=== PATIENT | female | born 2000 | race Hispanic/Latino ===

== ENCOUNTER 2021-11-13 15:09 | Emergency (ER) | payer OTHER, BC ==
[~2021-11-13] VITALS: Ht 160 cm; Wt 64.0 kg
[~2021-11-13 15:09] MED LIST: CEFDINIR300 MG PO; CLINDAMYCIN HC150 MG PO; HYDROCODON-ACE1 EA10 PO; PROTONIX40 MG PO
[2021-11-13] MEDS ORDERED: HYDROCODON-ACE1 EA11 PO (18:59)
[2021-11-13] MEDS ORDERED: ONDANSETRON ODT8 MG PO (18:59)
--- NOTE | 2021-11-13 19:25 | NUR ---
EMILY MAXWELL INFORMED ME THAT PT HAD MISCARRIED AND WAS INTERESTED IN VISITING WITH ME REGARDING [facility] DEMISE BURIAL. I ARRIVED IN PT'S , HER MOTHER IN , DID NOT SPEAK [place] CITIZ[place] BUT PT WAS FLUENT. PT WOULD RELAY TO MOTHER SHE FELT NEEDED. INFORMED HER OF OUR BURIAL AT [facility], EX- PLAINED CONNECTION WITH [facility] AND [facility]. SHE ALSO ASKED IF BURIAL COULD BE DONE IN [place]. YES, BUT SHE WOULD NEED TO MAKE THOSE ARRANGEMENTS AND BARE FINANCIAL RESPONSIBILITIES. INFORMED HER HOW TO MAKE ARRANGEMENTS WITH ME IF SHE WOULD LIKE TO USE [facility]. GAVE CONDOLENCES, COMFORT AND HAD PRAYER WITH BOTH. PT IS VERY GRACIOUS, WILL FOLLOW NEEDED
== END 2021-11-13 19:21 | disposition home or self-care (01) ==
LOC: ED 15:09
DX: O03.9 Complete or unspecified spontaneous abortion without complication (principal)
CPT/HCPCS: 36415; 76801; 76817; 80048; 84702; 85025; 86900; 96374; 99284-25; J1170; J7030

== ENCOUNTER 2023-03-26 06:07 | Inpatient (IN) | payer OTHER, BC ==
[~2023-03-26] VITALS: Ht 157.5 cm; Wt 77.1 kg
--- OUTSIDE RECORDS SUMMARY | ~2023-03-26 | XMS | Continuity of Care Document ---
Demographics + + + | Address | [address] | | | [place] [address] | + + + | Preferred Language | Unknown | + + + | Marital Status | Never | + + + | Episcopalian Affiliation | Unknown | + + + | Race | Unknown | + + + | Ethnic Group | Unknown | + + + Author + + + | Author | [facility] | + + + | Organization | [facility] | + + + | Address | [address] | | | [place] [address] | + + + | Phone | | + + + Care Team Providers + + + + | Care Perch Mender Name | Role | Phone | + + + + Unavailable | Unavailable | + + + + Allergies and Intolerances + + + + + + | date | description | facility | reaction | severity | + + + + + + | (no date) | No Known | [facility] | (no reaction) | (no severity) | | | Allergies | | | | + + + + + + Encounters No information. Functional Status No information. Immunizations No information. Medications No information. Problems + + + + | date | description | facility | + + + + | 2022-08-21 13:47 | [facility] | [facility] | | | NORMAL FIRST PREG, FIRST | | | | TRIMESTER | | + + + + | 2022-08-21 13:47 | LESS THAN 8 WEEKS | [facility] | | | GESTATION OF | | + + + + | 2022-08-21 13:47 | 8 WEEKS GESTATION OF | [facility] | | | | | + + + + | 2022-11-06 12:59 | [facility] | [facility] | | | NORMAL FIRST PREG, SECOND | | | | TRIMESTER | | + + + + | 2022-11-06 12:59 | 20 WEEKS GESTATION OF | [facility] | | | | | + + + + | 2023-01-24 19:11 | [facility] | [facility] | | | NORMAL PREG, UNSP, THIRD | | | | TRIMESTER | | + + + + | 2023-01-24 19:11 | 31 WEEKS GESTATION OF | [facility] | | | | | + + + + Procedures No information. Results/Labs No information. Social History No information. Vital Signs No information."
[~2023-03-26 06:07] MED LIST changes: +HYDROCODON-ACE1 EA11 PO; +ONDANSETRON ODT8 MG PO
[2023-03-26 08:12] LABS: AMPHETAMINES, UR NEGATIVE (NEGATIVE); BARBITURATES, UR NEGATIVE (NEGATIVE); BENZODIAZEPINES, UR NEGATIVE (NEGATIVE); BUPRENORPHINE,UR NEGATIVE (NEGATIVE); COCAINE, UR NEGATIVE (NEGATIVE); MARIJUANA (THC), UR NEGATIVE (NEGATIVE); MDMA, UR NEGATIVE (NEGATIVE); METHADONE, UR NEGATIVE (NEGATIVE); METHAMPHETAMINE, UR NEGATIVE (NEGATIVE); OPIATES, UR NEGATIVE (NEGATIVE); OXYCODONE, UR NEGATIVE (NEGATIVE); PHENCYCLIDINE, UR NEGATIVE (NEGATIVE); TRICYCLIC ANTIDEPRESSANT, UR NEGATIVE (NEGATIVE)
[2023-03-26 08:18] LABS: HEMATOCRIT 36.7 % (35.0-50.0); HEMOGLOBIN 11.6 g/dL (12.0-18.0); MCH 25.4 (27-36); MCHC 31.7 g/dl (30-36); MCV 80.1 fl (81-99); RBC 4.59 M/ul (4.3-5.7); RDW 16.1 (10.5-15.0)
[2023-03-26 08:33] VITALS: BP 129/77
[2023-03-26 08:53] LABS: ABO B; ANTIBODY SCREEN NEGATIVE; RH POSITIVE
--- NOTE | 2023-03-26 11:29 | PR ---
[facility] [address] [place], [place] [address] Signed Progress Notes IP Datetime Report Generated by CPN: 03/26/2023 11:29 PROGRESS NOTES: [id number] Impression: Normal Progression of Labor; Reassuring Heart Rate Procedures: Sterile Vag Exam Plan: Continue Present Management; Anticipate Vaginal Delivery Informed Consent Obtain: Vaginal Delivery VITAL SIGNS: [id number] Vital Signs: Reviewed; Within Normal Limits EXAM: [id number] Dilatation: 8.0 Effacement: 95 Station: -1 Contractions: q 3-4 MEMBRANES: [id number] Comments: Pt seen and examined. Doing well. Painful contractions but coping well w/ nitrous. Declines epidural or AROM. Will bounce on birthing ball. No quesions or concerns. Reviewed Cat 1 strip and favorable labor progression. Anticipate soon FETUS A: [id number] FHR Baseline: 125 Variability: Moderate 6-25bpm Decelerations: None FHR Category: Category I Presentation: Vertex Comments on Fetus A: No evidence of metabolic acidosis FETUS B: [id number] Signing Physician: Lonnie Green DO Copies: ~ *Electronically Signed* 03/26/23 1122 LONNIE GREEN ([place]) DO PATIENT NAME: KARTHIK LOVELL PROGRESS NOTE DATE OF : 99 PHYSICIAN: LONNIE GREEN) DO RPT #: [id number] REPORT IS CONFIDENTIAL AND NOT TO BE RELEASED WITHOUT AUTHORIZATION
[2023-03-27 05:41] LABS: HEMOGLOBIN 10.8 g/dL (12.0-18.0); MCH 25.7 (27-36); MCHC 31.8 g/dl (30-36); RBC 4.2 M/ul (4.3-5.7); RDW 16.1 (10.5-15.0)
--- NOTE | 2023-03-27 18:39 | PR ---
[facility] [address] [place], [place] [address] Signed PP Progress Notes Datetime Report Generated by CPN: 03/27/2023 18:39 SUBJECTIVE: [id number] Pain: Within Normal Limits Nausea/Vomiting: Denies Flatus: Yes Bowel Movement: No Vital Signs: [id number] Vital Signs: Reviewed; Within Normal Limits Cardiovascular: Normal Respiratory: Normal Abdomen/Uterus: Normal Lochia: Normal Vulva/Perineum: Not Done Breasts: Not Done CVA Tenderness: Normal Extremities: Normal Incision: Not Applicable Progress: Normal Exam Comments: Fundus firm U-2 nontender IMPRESSION/PLAN/PROCEDURES: [id number] Impression: Normal Progression; Pain Progress Notes: Pt seen and examined. C/O extremely tender coccyx and is concerned of possible fracture. No fevers/chills or other concerns. well. XR ordered. Anticipate d/c home in AM Signing Physician: Lonnie Green DO Copies: ~ *Electronically Signed* 03/27/23 1837 LONNIE GREEN ([place]) DO PATIENT NAME: KARTHIK LOVELL PROGRESS NOTE DATE OF : 99 PHYSICIAN: LONNIE GREEN (EMCCA) DO RPT #: [id number] REPORT IS CONFIDENTIAL AND NOT TO BE RELEASED WITHOUT AUTHORIZATION
--- NOTE | 2023-03-28 08:33 | PR ---
[facility] [address] [facility] [place], [place] [address] Signed PP Progress Notes Datetime Report Generated by CPN: 03/28/2023 08:33 SUBJECTIVE: [id number] Pain: Within Normal Limits Pain Comments: Tailbone pain improved, XR negative Nausea/Vomiting: Denies Flatus: Yes Bowel Movement: Yes Vital Signs: [id number] Vital Signs: Reviewed; Within Normal Limits Cardiovascular: Normal Respiratory: Normal Abdomen/Uterus: Normal Lochia: Normal Vulva/Perineum: Not Done Breasts: Not Done CVA Tenderness: Normal Extremities: Normal Incision: Not Applicable Progress: Normal Exam Comments: Fundus firm U-2 nontender IMPRESSION/PLAN/PROCEDURES: [id number] Impression: Normal Progression Plan: Discharge Progress Notes: Pt seen and examined. Doing well. Coccyx pain improved and XR negative. Ambulating, voiding, and tolerating full diet. Pain and lochia minimal. well. No fevers/chills or other concerns. Desires d/c home. Reviewed d/c instructions in detail. Uncertain of pp contraception plan. No other questions. F/U 2 wk pp Signing Physician: Lonnie Green DO Copies: ~ *Electronically Signed* 03/28/23 0833 LONNIE GREEN ([place]) DO PATIENT NAME: KARTHIK LOVELL PROGRESS NOTE DATE OF : 99 PHYSICIAN: LONNIE GREEN) DO RPT #: [id number] REPORT IS CONFIDENTIAL AND NOT TO BE RELEASED WITHOUT AUTHORIZATION
--- NOTE | 2023-03-28 11:58 | NUR ---
PT IN BED WITH BABY. BABY APPEARED CONTENT. DAD AT BEDSIDE. GRANDMOTHER IN CHAIR. ALL EXHIBITED LOVING INTERACTION WITH BABY. DENIED NEEDS. CONSENTED TO PRAYER. PRAYED FOR ONGOING HEALING AND ABIDING PEACE.
== END 2023-03-28 13:15 | disposition home or self-care (01) | DRG 807 ==
LOC: FBCO 06:07 → FBC 07:40
PROVIDERS: Obstetrics & Gynecology; ADMIT Obstetrics & Gynecology; ATTEND Obstetrics & Gynecology
PROC: 10E0XZZ Delivery of Products of Conception, External Approach (ICD-10-PCS; principal; 2023-03-26)
PROC: 0KQM0ZZ Repair Perineum Muscle, Open Approach (ICD-10-PCS; 2023-03-26)
PROC: 10907ZC Drainage of Amniotic Fluid, Therapeutic from Products of Conception, Via Natural or Artificial Opening (ICD-10-PCS; 2023-03-26)
PROC: 0UQMXZZ Repair Vulva, External Approach (ICD-10-PCS; 2023-03-26)
DX: O76 Abnormality in fetal heart rate and rhythm complicating labor and delivery (principal); Z37.0 Single live birth; O99.892 Other specified diseases and conditions complicating childbirth; M53.3 Sacrococcygeal disorders, not elsewhere classified; O99.52 Diseases of the respiratory system complicating childbirth; J45.909 Unspecified asthma, uncomplicated; O34.13 Maternal care for benign tumor of corpus uteri, third trimester; O70.0 First degree perineal laceration during delivery; D25.0 Submucous leiomyoma of uterus; Z3A.39 39 weeks gestation of pregnancy; Z67.20 Type B blood, Rh positive
CPT/HCPCS: 36415; 72220; 85027; 86850; 86900; 86901; A9270; J2590